=== PATIENT | female | born 1945 | race Caucasian/White ===

== ENCOUNTER 2017-09-04 10:06 | Outpatient (CLI) | payer MEDICARE | END 2017-09-04 10:07 | disposition home or self-care (01) | LOC: BICMAMMO 10:06 | PROVIDERS: ATTEND Family Medicine | DX: Z12.31 Encounter for screening mammogram for malignant neoplasm of breast (principal) | CPT/HCPCS: 77063; 77067 ==

== ENCOUNTER 2018-09-08 13:05 | Outpatient (CLI) | payer MEDICARE ==
--- NOTE | 2018-09-24 14:29 | MMO ---
Bilateral MAMMO Bilat Screen [facility]. CLINICAL HISTORY: Patient is 73 years old and is seen for screening. The patient has the following family history of breast cancer: maternal aunt. The patient has no personal history of cancer. VIEWS: The views performed were: bilateral craniocaudal with tomosynthesis and bilateral mediolateral oblique with tomosynthesis. FILMS COMPARED: The present examination has been compared to prior imaging studies performed at [facility] on 09/04/2017, and at [facility] on 11/19/2010, 11/26/2011, 01/13/2013 and 06/26/2015. MAMMOGRAM FINDINGS: The breasts are heterogeneously dense, which could obscure a lesion on mammography. There are no suspicious masses, suspicious calcifications, or new areas of architectural distortion. IMPRESSION: THERE IS NO MAMMOGRAPHIC EVIDENCE OF MALIGNANCY. A ROUTINE FOLLOW-UP MAMMOGRAM IN 1 YEAR IS RECOMMENDED. THE RESULTS OF THIS EXAM WERE SENT TO THE PATIENT. ACR BI-RADS Category 1 - Negative MAMMOGRAPHY NOTE: 1. A negative mammogram report should not delay a biopsy if a dominant of clinically suspicious mass is present. 2. Approximately 10% to 15% of breast cancers are not detected by mammography. 3. Adenosis and dense breasts may obscure an underlying neoplasm.
== END 2018-09-08 13:06 | disposition home or self-care (01) ==
LOC: BICMAMMO 13:05
PROVIDERS: ATTEND Family Medicine
DX: Z12.31 Encounter for screening mammogram for malignant neoplasm of breast (principal); Z80.3 Family history of malignant neoplasm of breast
CPT/HCPCS: 77063; 77067

== ENCOUNTER 2019-05-11 09:54 | Outpatient (CLI) | payer MEDICARE ==
--- NOTE | 2019-05-11 11:35 | BD ---
EXAM: DEXA bone density examination HISTORY: Osteoporosis screening ; Asymptomatic menopausal state COMPARISON: None FINDINGS: L1--bone mineral density 0.994 g/sq cm; T score 0.0. Z score 2.1 L2--bone mineral density 1.005 g/sq cm; T score -0.2; Z score 2.0 L3--bone mineral density 1.077 g/sq cm; T score -0.1; Z score 2.3 L4--bone mineral density 1.105 g/sq cm; T score 0.4, Z score 2.8 Total L1-L4--bone mineral density 1.050 g/sq cm; T score 0.0, Z score 2.3 Left femoral neck--bone mineral density0.760; T score -0.8, Z score 1.2 Total proximal left femur--bone mineral density 0.881; T score -0.5, Z score 1.2 IMPRESSION: Based on the WHO criteria, the patient's bone mineral density is consideredNormal. The p atient is at low risk for fracture.
== END 2019-05-11 09:55 | disposition home or self-care (01) ==
LOC: BICMAMMO 09:54
PROVIDERS: ATTEND Family Medicine
DX: Z13.820 Encounter for screening for osteoporosis (principal); Z78.0 Asymptomatic menopausal state
CPT/HCPCS: 77080

== ENCOUNTER 2019-05-11 09:58 | Outpatient (CLI) | payer MEDICARE ==
--- NOTE | 2019-05-11 11:03 | ULT ---
ABDOMINAL AORTIC ANEURYSM: CLINICAL HISTORY: Abdominal aortic aneurysm screening. FINDINGS: Proximal abdominal aorta measures 1.4 cm in diameter, mid abdominal aorta 1.4 cm, and distal abdomina l aorta 1.1 cm. No aneurysmal dilatation of the abdominal aorta is demonstrated. IMPRESSION: No sonographic evidence of abdominal aortic aneurysm. Transcribed Date/Time: 05/11/2019 11:08 AM
== END 2019-05-11 09:59 | disposition home or self-care (01) ==
LOC: BICULT 09:58
PROVIDERS: ATTEND Family Medicine
DX: Z13.6 Encounter for screening for cardiovascular disorders (principal); Z78.0 Asymptomatic menopausal state
CPT/HCPCS: 76775

== ENCOUNTER 2019-10-11 12:05 | Outpatient (CLI) | payer MEDICARE ==
--- NOTE | 2019-10-11 13:01 | MMO ---
Bilateral MAMMO Bilat Screen [facility]. CLINICAL HISTORY: Patient is 74 years old and is seen for screening. The patient has the following family history of breast cancer: maternal aunt. The patient has no personal history of cancer. VIEWS: The views performed were: bilateral craniocaudal with tomosynthesis and bilateral mediolateral oblique with tomosynthesis. FILMS COMPARED: The present examination has been compared to prior imaging studies performed at [facility] on 09/04/2017 and 09/08/2018, and at [facility] on 06/26/2015. This study has been interpreted with the assistance of computer-aided detection. MAMMOGRAM FINDINGS: The breasts are heterogeneously dense, which could obscure a lesion on mammography. There are no suspicious masses, suspicious calcifications, or new areas of architectural distortion. IMPRESSION: THERE IS NO MAMMOGRAPHIC EVIDENCE OF MALIGNANCY. A ROUTINE FOLLOW-UP MAMMOGRAM IN 1 YEAR IS RECOMMENDED. THE RESULTS OF THIS EXAM WERE SENT TO THE PATIENT. ACR BI-RADS Category 1 - Negative MAMMOGRAPHY NOTE: 1. A negative mammogram report should not delay a biopsy if a dominant of clinically suspicious mass is present. 2. Approximately 10% to 15% of breast cancers are not detected by mammography. 3. Adenosis and dense breasts may obscure an underlying neoplasm. Reported by: ESVIN KIRKPATRICK MD Electonically Signed: [id number]
== END 2019-10-11 12:06 | disposition home or self-care (01) ==
LOC: BICMAMMO 12:05
PROVIDERS: ATTEND Family Medicine
DX: Z12.31 Encounter for screening mammogram for malignant neoplasm of breast (principal); Z80.3 Family history of malignant neoplasm of breast
CPT/HCPCS: 77063; 77067

== ENCOUNTER 2020-10-16 11:12 | Outpatient (CLI) | payer MEDICARE | END 2020-10-16 11:13 | disposition home or self-care (01) | LOC: BICMAMMO 11:12 | PROVIDERS: ATTEND Family Medicine | DX: Z12.31 Encounter for screening mammogram for malignant neoplasm of breast (principal); Z80.3 Family history of malignant neoplasm of breast | CPT/HCPCS: 77063; 77067 ==

== ENCOUNTER 2021-12-18 13:33 | Outpatient (CLI) | payer MEDICARE | END 2021-12-18 13:34 | disposition home or self-care (01) | LOC: BICMAMMO 13:33 | PROVIDERS: ATTEND Family Medicine | DX: Z12.31 Encounter for screening mammogram for malignant neoplasm of breast (principal); Z80.3 Family history of malignant neoplasm of breast | CPT/HCPCS: 77063; 77067 ==